=== PATIENT | female | born 1955 | race African-American/Black ===

== ENCOUNTER 2017-05-31 11:13 | Emergency (ER) | payer MEDICAID, OTHER ==
[~2017-05-31] VITALS: Ht 162.6 cm; Wt 50.0 kg
[~2017-05-31 11:13] MED LIST: HYDROCODON-ACETAMINOPHEN; NO HOME MEDS
[2017-05-31] MEDS ORDERED: SODIUM CHLORIDE 0.9% 1,000 ML IV ONE (11:29)
[2017-05-31] MEDS ORDERED: ONDANSETRON HCL 4MG/2ML VIAL IV STA (11:29)
[2017-05-31 12:15] LABS: INR 1.2; PROTHROMBIN TIME 12.3 sec (9.4-11.6)
[2017-05-31 12:19] LABS: CARBON DIOXIDE 29 mEq/L (21-32); CHLORIDE 105 mEq/L (98-107)
[2017-05-31 12:20] LABS: BASOPHILS % 0.9 % (0.0-2.0); EOSINOPHILS % 1.3 % (0.0-5.0); HEMATOCRIT. 45.9 % (36.0-48.0); LYMPHOCYTES % 27.8 % (20.0-50.0); MEAN CORPUSCULAR HEMOGLOBIN 33.9 pg (28.0-32.0); MEAN CORPUSCULAR VOLUME 97.4 fL (81.0-99.0); MONOCYTES % 8.3 % (2.0-8.0); NEUTROPHILS % 61.7 % (40.0-76.0); PLATELET 270 x1000/uL (130-400); RED BLOOD CELL COUNT 4.72 mill/uL (4.2-5.4); RED CELL DISTRIBUTION WIDTH 13.1 % (11.6-14.6)
[2017-05-31 12:24] LABS: TROPONIN I < 0.02 ng/mL (0.00-0.04)
[2017-05-31 13:19] LABS: CLARITY URINE CLOUDY (CLEAR); COLOR URINE YELLOW (YELLOW); GLUCOSE URINE NEGATIVE (NEGATIVE); KETONES URINE 3+ (NEGATIVE); LEUKOCYTE ESTERASE URINE 2+ (NEGATIVE); NITRITE URINE NEGATIVE (NEGATIVE); OCCULT BLOOD URINE 1+ (NEGATIVE); PH URINE 6.5 (4.5-8.0); PROTEIN URINE TRACE (NEGATIVE); SPECIFIC GRAVITY URINE 1.026 (1.005-1.030)
[2017-05-31] MEDS ORDERED: IOHEXOL-300 100 ML BOTTLE ONE (14:08)
[2017-05-31 16:12] VITALS: BP 135/51
== END 2017-05-31 16:43 | disposition home or self-care (01) ==
LOC: ER 12:00
DX: R10.13 Epigastric pain (principal); R11.2 Nausea with vomiting, unspecified; R31.9 Hematuria, unspecified; F17.210 Nicotine dependence, cigarettes, uncomplicated; Z87.11 Personal history of peptic ulcer disease
CPT/HCPCS: 36415; 71010; 74177; 80053; 81001; 83690; 84484; 85025; 85610; 93005; 96361; 96374; 99285; J2405; J7030; Q9967; Z7610

== ENCOUNTER 2018-06-01 14:22 | Emergency (ER) | payer OTHER ==
[~2018-06-01] VITALS: Ht 160 cm; Wt 55.0 kg
[2018-06-01] MEDS ORDERED: MAGNESIUM/ALUMINUM HYDROXIDE/SIMETHICONE 30ML UDC PO STA (16:20)
[2018-06-01] MEDS ORDERED: SODIUM CHLORIDE 0.9% 1,000 ML IV ONE (16:20)
[2018-06-01] MEDS ORDERED: FAMOTIDINE 20MG/2ML VIAL IV STA (16:20)
[2018-06-01] MEDS ORDERED: MORPHINE SULFATE 4 MG/ML CPJ (NOT FOR IM USE) IV STA (16:20)
[2018-06-01] MEDS ORDERED: ONDANSETRON HCL 4MG/2ML INJ IV STA (16:20)
[2018-06-01 17:05] LABS: BASOPHILS % 0.8 % (0.0-2.0); EOSINOPHILS % 0.3 % (0.0-5.0); HEMATOCRIT. 45.7 % (36.0-48.0); HEMOGLOBIN. 15.6 g/dL (12.0-16.0); MEAN CORPUSCULAR HEMOGLOBIN 33.5 pg (28.0-32.0); MEAN CORPUSCULAR VOLUME 97.9 fL (81.0-99.0); MEAN PLATELET VOLUME 6.5 fl (7.4-10.4); MONOCYTES % 7.8 % (2.0-8.0); NEUTROPHILS % 64.1 % (40.0-76.0); PLATELET 287 x1000/uL (130-400); RED BLOOD CELL COUNT 4.67 mill/uL (4.2-5.4); RED CELL DISTRIBUTION WIDTH 13.2 % (11.6-14.6)
[2018-06-01 17:11] LABS: CHLORIDE 100 mEq/L (98-107); INR 1.2; PROTHROMBIN TIME 11.6 sec (9.1-11.1)
[2018-06-02 09:20] VITALS: BP 116/62
== END 2018-06-02 09:29 | disposition home or self-care (01) ==
LOC: ER 14:22
DX: R11.2 Nausea with vomiting, unspecified (principal); R10.84 Generalized abdominal pain; F17.200 Nicotine dependence, unspecified, uncomplicated
CPT/HCPCS: 36415; 71045; 74176; 80053; 83605; 83690; 83880; 85025; 85610; 96361; 96374; 96375; 99285; J2270; J2405; J3490; J7030

== ENCOUNTER 2018-06-04 18:42 | Emergency (ER) | payer MEDICAID, OTHER ==
[~2018-06-04] VITALS: Ht 162.6 cm; Wt 50.0 kg
[2018-06-05] MEDS ORDERED: FAMOTIDINE 20MG/2ML VIAL IV STA (01:20)
[2018-06-05] MEDS ORDERED: MAGNESIUM/ALUMINUM HYDROXIDE/SIMETHICONE 30ML UDC PO STA (01:20)
[2018-06-05] MEDS ORDERED: METOCLOPRAMIDE HCL 10MG/2ML VIAL IV STA (01:20)
[2018-06-05 01:48] LABS: BASOPHILS % 0.8 % (0.0-2.0); EOSINOPHILS % 0.4 % (0.0-5.0); HEMATOCRIT. 45.2 % (36.0-48.0); HEMOGLOBIN. 15.9 g/dL (12.0-16.0); LYMPHOCYTES % 33.6 % (20.0-50.0); MEAN CORPUSCULAR HEMOGLOBIN 34.2 pg (28.0-32.0); MEAN CORPUSCULAR VOLUME 97.1 fL (81.0-99.0); MEAN PLATELET VOLUME 6.3 fl (7.4-10.4); MONOCYTES % 8.1 % (2.0-8.0); NEUTROPHILS % 57.1 % (40.0-76.0); PLATELET 311 x1000/uL (130-400); RED BLOOD CELL COUNT 4.66 mill/uL (4.2-5.4); RED CELL DISTRIBUTION WIDTH 13.4 % (11.6-14.6)
[2018-06-05 01:57] LABS: INR 1.2
[2018-06-05 01:59] LABS: CHLORIDE 99 mEq/L (98-107)
[2018-06-05 03:27] LABS: CLARITY URINE CLEAR (CLEAR); COLOR URINE YELLOW (YELLOW); KETONES URINE 2+ (NEGATIVE); LEUKOCYTE ESTERASE URINE TRACE (NEGATIVE); NITRITE URINE NEGATIVE (NEGATIVE); OCCULT BLOOD URINE NEGATIVE (NEGATIVE); PH URINE 5.5 (4.5-8.0); PROTEIN URINE 1+ (NEGATIVE)
[2018-06-05 04:12] VITALS: BP 114/76
== END 2018-06-05 04:12 | disposition home or self-care (01) ==
LOC: ER 18:50
DX: N39.0 Urinary tract infection, site not specified (principal); K21.9 Gastro-esophageal reflux disease without esophagitis
CPT/HCPCS: 36415; 80053; 81003; 83690; 85025; 85610; 96374; 96375; 99284; J2765; J3490

== ENCOUNTER 2019-08-21 11:35 | Emergency (ER) | payer MEDICAID, OTHER ==
[~2019-08-21] VITALS: Ht 167.6 cm; Wt 59.0 kg
[2019-08-21] MEDS ORDERED: FENTANYL CITRATE/PF 50MCG/ML 2ML VIAL ONE (12:21)
[2019-08-21] MEDS ORDERED: MIDAZOLAM HCL 2 MG/2 ML VIAL ONE (12:21)
[2019-08-21] MEDS ORDERED: IODIXANOL 320MG/ML 100 ML BOTTLE IV ONE (12:22)
[2019-08-21] MEDS ORDERED: LIDOCAINE HCL 1% 20ML VIAL (Pyxis) INJ ONE (12:22)
[2019-08-21] MEDS ORDERED: HEPARIN 1,000 UNITS PREMIX 0 ML IV ONE (12:22)
[2019-08-21] MEDS ORDERED: MORPHINE SULFATE 4 MG/ML CPJ (NOT FOR IM USE) IV STA (15:11)
[2019-08-21] MEDS ORDERED: MAGNESIUM/ALUMINUM HYDROXIDE/SIMETHICONE 30ML UDC PO STA (15:11)
[2019-08-21] MEDS ORDERED: FAMOTIDINE 20MG/2ML VIAL IV STA (15:11)
[2019-08-21] MEDS ORDERED: SODIUM CHLORIDE 0.9% 1,000 ML IV ONE (15:11)
[2019-08-21] MEDS ORDERED: ONDANSETRON HCL 4MG/2ML INJ IV STA (15:11)
[2019-08-21 15:53] LABS: BASOPHILS % 0.7 % (0.0-2.0); EOSINOPHILS % 0.2 % (0.0-5.0); HEMATOCRIT. 45.2 % (36.0-48.0); HEMOGLOBIN. 15.9 g/dL (12.0-16.0); LYMPHOCYTES % 22.4 % (20.0-50.0); MEAN CORPUSCULAR HEMOGLOBIN 34.1 pg (28.0-32.0); MEAN CORPUSCULAR VOLUME 97.1 fL (81.0-99.0); MEAN PLATELET VOLUME 6.9 fl (7.4-10.4); MONOCYTES % 5.8 % (2.0-8.0); NEUTROPHILS % 70.9 % (40.0-76.0); PLATELET 268 x1000/uL (130-400); RED BLOOD CELL COUNT 4.66 mill/uL (4.2-5.4)
[2019-08-21 15:56] LABS: CHLORIDE 103 mEq/L (98-107)
[2019-08-21 16:00] LABS: ETHANOL BLOOD < 10 mg/dL; INR 1.2; PROTHROMBIN TIME 11.8 sec (9.6-11.0)
[2019-08-21 16:34] LABS: CLARITY URINE CLEAR (CLEAR); COLOR URINE YELLOW (YELLOW); KETONES URINE 1+ (NEGATIVE); LEUKOCYTE ESTERASE URINE 1+ (NEGATIVE); NITRITE URINE NEGATIVE (NEGATIVE); OCCULT BLOOD URINE NEGATIVE (NEGATIVE); PH URINE 5.5 (4.5-8.0); PROTEIN URINE 1+ (NEGATIVE); SPECIFIC GRAVITY URINE 1.028 (1.005-1.030)
[2019-08-21] MEDS ORDERED: METRONIDAZOLE 500MG TABLET PO ONE (17:30)
[2019-08-21 17:42] VITALS: BP 135/78
== END 2019-08-21 17:44 | disposition home or self-care (01) ==
LOC: ER 11:35
DX: R10.13 Epigastric pain (principal)
CPT/HCPCS: 36415; 71045; 74176; 80053; 80320; 81003; 83690; 84484; 85025; 85610; 93005; 96361; 96374; 96375; 99284; J2270; J2405; J3490; J7030; J1644; J2250; J3010; Q9967; G0480